=== PATIENT | female | born 1980 | race Caucasian/White ===

== ENCOUNTER → 2016-12-05 | Outpatient (CLI) | payer MEDICAID ==
--- NOTE | 2016-12-05 22:49 | PN ---
DATE OF SERVICE: 12/05/2016 This patient is a 36-year-old lady who has been followed in the sleep center for treatment of obstructive sleep apnea/hypopnea syndrome. Patient continues to use her CPAP equipment every night for the whole night without any significant problems. [place] Sleepiness Scale today is only 3. Her medications are Adderall 40 mg every morning, Celexa 20 mg, multivitamins and Motrin. Previously she was tried on treatment with modafinil but had significant side effects. During physical exam, patient in no distress. BP 131/82, HR 125, RR 16. Height 5 feet 1 inch. Weight 202. BMI 38.1. Temperature 99.1. Oxygen saturation at room air 96%. HEENT: PERRLA. EOMI. Evaluation of oropharynx showed tongue protrudes midline; extremely low position of soft palate. NECK: Supple. No JVD. Thyroid is not palpable. LUNGS: Clear to percussion and to auscultation. Good air exchange. No wheezing or rhonchi. HEART: S1, S2. Tachycardia. ABDOMEN: Obese. Patient's weight has increased by 9 pounds since previous visit. EXTREMITIES: No clubbing or cyanosis. TRANSCRIPTION SPECIALIST: Awake, alert and oriented x3. No focal deficits observed. IMPRESSION: 1. Mild obstructive apnea/hypopnea syndrome, clinically controlled with CPAP at 7 cm of water. No snoring with CPAP. Patient is benefitting from treatment. 2. Significant excessive daytime sleepiness, mostly controlled with Adderall during the day. 3. Patient continues to have tachycardia. 4. History of attention deficit disorder. 5. History of depression. 6. Obesity. 7. Status post appendectomy. 8. Status post lap band surgery. 9. At present patient works a daytime shift. PLAN: 1. Continue treatment with CPAP every night for the whole night. 2. Prescription for all necessary CPAP supplies, including mask, tube, filters. 3. Again discussed with the patient necessity to follow with operations manager station or primary care physician for normalization of her heart rate. 4. Losing weight. 5. No driving if feeling any sleepiness. Thank you very much for allowing me to participate in the management of your patient. Sincerely, Fransico Negrete. , PhD, FAASM. Diplomat of [place] [employer], Sleep Medicine Board by [employer] Ice Bag Assembler of [facility] [place]
== END ==
LOC: SLEEP 14:27
PROVIDERS: ATTEND Internal Medicine
DX: G47.33 Obstructive sleep apnea (adult) (pediatric) (principal); G47.10 Hypersomnia, unspecified; F31.9 Bipolar disorder, unspecified; F41.9 Anxiety disorder, unspecified; E66.9 Obesity, unspecified; Z90.89 Acquired absence of other organs; Z98.890 Other specified postprocedural states

== ENCOUNTER → 2017-06-12 | Outpatient (CLI) | payer MEDICAID ==
--- NOTE | 2017-06-12 21:57 | PN ---
PROGRESS NOTE DATE OF SERVICE: 06/12/2017 A 36-year-old lady has been followed in sleep center for treatment of obstructive sleep apnea-hypopnea syndrome and excessive daytime sleepiness. The patient continued to use her CPAP equipment every night for the whole night. Recently her CPAP equipment heater-humidifier stopped working. She continued to use without humidifier, but has difficulties. Patient taking Adderall 40 mg in the morning for excessive daytime sleepiness and Celexa 20 mg in the morning for depression. I checked the patient's CPAP unit. CPAP pressure 7 cm of water. Ramp is off. Patient is using therapeutic pressure right away. Humidity at the level of 3. I checked usage of the machine is 29/30, more than 4 hours. Average usage is 7.3 hours. Leak is only 5 L/minute, which is perfect. Apnea-hypopnea index only 0.9, which is also perfect. I checked heated humidifier in different regimens of humidity at 3 and at 8 and no heat at all. PHYSICAL EXAMINATION: GENERAL Patient in no distress VITAL SIGNS BP 136/83, HR 96, RR 16, height 5 feet 1 inch, weight 188, BMI 35.5, temperature 98.3, oxygen saturation at room air 100%. HEENT PERRLA, EOMI, evaluation of oropharynx showed tongue protrudes midline, moderately low position of soft palate. Neck Supple, no JVD. Thyroid is not palpable. LUNGS Clear to percussion and to auscultation. Good air exchange. No wheezing or rhonchi. HEART S1, S2 regular. No murmurs, gallops, or rubs. ABDOMEN Slightly obese, soft and nontender. Bowel sounds are present. No organomegaly appreciated. EXTREMITIES No clubbing or cyanosis. SURVEY DATA TECHNICIAN Awake, alert, and oriented X3. Cranial nerves 2 to 7 intact. There is no fasciculation or atrophy. noted. No focal deficits observed. IMPRESSION: 1. Obstructive sleep apnea-hypopnea syndrome on control with CPAP at 7 cm of water. Patient demonstrated 100% compliance with treatment, benefitting from treatment. 2. Excessive daytime sleepiness. Patient is on treatment with Adderall. Previous multiple sleep latency was borderline for excessive sleepiness. 3. History of depression. 4. Mild obesity, BMI 35.5. 5. Status post appendectomy. 6. Status post lap band surgery. PLAN: 1. Prescription for all CPAP supplies. 2. Prescription to fix heated humidifier or replace it or get new CPAP unit. 3. Continue to use equipment every night for the whole night. 4. Losing weight. 5. Sleep hygiene with regular time in bed for at least 8 hours. Continue treatment with Adderall with the same dosage. Thank you very much for allowing me to participate in management of your patient. Sincerely, Fransico Negrete MD, PhD, FAASM Diplomat of [employer] Specialties [employer] Board of Internal Medicine Employment Evaluator/Case Manager of [facility] [place] MMODL / LIZZIEN: [id number] /
== END | disposition home or self-care (01) ==
LOC: SLEEP 16:00
PROVIDERS: ATTEND Internal Medicine
DX: G47.33 Obstructive sleep apnea (adult) (pediatric) (principal); F32.9 Major depressive disorder, single episode, unspecified; E66.9 Obesity, unspecified; Z79.899 Other long term (current) drug therapy; Z99.89 Dependence on other enabling machines and devices; Z68.35 Body mass index [BMI] 35.0-35.9, adult; Z98.84 Bariatric surgery status; Z98.890 Other specified postprocedural states

== ENCOUNTER → 2018-04-03 | Outpatient (CLI) | payer MEDICAID ==
[2018-04-03 09:26] LABS: HCT 37.9 % (34.0-46.0); HGB 12.9 gm/dL (11.4-16.0); MCHC 34.2 g/dL (31.0-37.0); MCV 84.8 fL (80.0-100.0); Mean Platelet Volume 6.8; Platelet Count 274 k/uL (150-450); RBC 4.47 m/uL (3.80-5.40); RDW 13.3 % (11.5-15.5); WBC 7.3 k/uL (3.8-10.6)
[2018-04-03 09:28] LABS: Appearance,Urine Clear (Clear); Bilirubin,Urine Negative (Negative); Blood,Urine Negative (Negative); Color,Urine Yellow; Glucose,Urine (UA) Negative (Negative); Ketones,Urine Negative (Negative); Leukocyte Esterase,Urine Negative (Negative); Nitrite,Urine Negative (Negative); Protein,Urine Trace (Negative); Specific Gravity,Urine 1.018 (1.001-1.035); Urobilinogen,Urine <2.0 mg/dL (<2.0)
[2018-04-03 11:29] LABS: Erythrocyte Sedimentation Rate 16 mm/hr (0-20)
[2018-04-03 16:32] LABS: Albumin 4.3 g/dL (3.80-4.90); Albumin/Globulin Ratio 2.05 (1.20-2.10); Anion Gap 4.7 mmol/L (4.00-12.00); Calcium 9.4 mg/dL (8.7-10.3); Carbon Dioxide 25.3 mmol/L (21.6-31.8); Globulin 2.1 g/dL (2.1-3.7); Potassium 4.6 mmol/L (3.5-5.5); Total Bilirubin 0.4 mg/dL (0.3-1.2); Total Protein 6.4 g/dL (6.2-8.2)
[2018-04-03 16:45] LABS: Rheumatoid Factor 11 IU/mL (0-15)
[2018-04-03 17:29] LABS: DNA Double-Stranded NEGATIVE (NEGATIVE)
[2018-04-03 20:22] LABS: Hemoglobin A1C 5.7 % (4.0-6.0)
== END | disposition home or self-care (01) ==
LOC: LABWHC1 08:48
PROVIDERS: ATTEND Family Medicine
DX: Z00.00 Encounter for general adult medical examination without abnormal findings (principal); R73.9 Hyperglycemia, unspecified
CPT/HCPCS: 36415; 80053; 81003; 83036; 84439; 84443; 85027; 85652; 86038; 86225; 86431

== ENCOUNTER 2018-09-08 06:18 | Day surgery (SDC) | payer MEDICAID ==
[2018-09-03 09:45] VITALS: BMI 34.9
[~2018-09-08 06:18] MED LIST: DEXAMETHASONE SOD PHOSPHATE 10 MG/ML 1 ML VIAL IV ONE; HYDROmorphone 0.5 MG/0.5 ML SYRINGE IVP PRN; LACTATED RINGERS 1,000 ML IV SCH; MIDAZOLAM (PF) 2 MG/2 ML VIAL IV PRN; ONDANSETRON 4 MG/2 ML VIAL IVP ONE; Pre Op ABX Message 1 EACH MISC MISCELLANE ONE; SCOPOLAMINE 1.5MG/72HR PATCH TRANSDERM ONE
[2018-09-08 06:38] VITALS: RESP 16; TEMP 98.3
[2018-09-08] MEDS ORDERED: LIDOCAINE 1% 20 ML VIAL (10MG/ML) FOR IV START INTRADERMA ONE (06:56)
[2018-09-08] MEDS ORDERED: MIDAZOLAM 2 MG/2 ML VIAL ONE (07:21)
[2018-09-08] MEDS ORDERED: fentaNYL (PF) 50 MCG/ML 2 ML AMP ONE (07:21)
[2018-09-08] MEDS ORDERED: PROPOFOL 10 MG/ML 20 ML VIAL IV ONE (07:21)
[2018-09-08] MEDS ORDERED: BUPIVACAINE (PF) 0.5% 30 ML VIAL SQ ONE (07:31)
[2018-09-08] MEDS ORDERED: LIDOCAINE 2% INJ 20 MG/ML SQ ONE (07:31)
[2018-09-08 08:27] VITALS: BP 120/79; PULSE 80
--- NOTE | 2018-09-08 17:51 | OP ---
OPERATIVE REPORT PROCEDURE DATE: 09/08/2018. PRE PROCEDURE DIAGNOSIS: Right trigger thumb. POSTOPERATIVE DIAGNOSIS: Right trigger thumb PROCEDURE PERFORMED: A right trigger thumb release. DETAILS OF PROCEDURE: The patient was taken to the operative suite given intravenous sedation. I then performed a digital block of the thumb using combination Xylocaine and Marcaine both without Epinephrine. The hand was then prepped and draped in the usual manner. The hand was elevated, exsanguinated. The cuff was inflated 250 mmHg. A transverse incision was made in the proximal skin crease of the thumb. Blunt dissection was taken through the subcutaneous tissue to identify the neurovascular bundles. They were kept in view and gently retracted out of harms way while a longitudinal release of the A1 luci was performed. The flexor pollicis longus was examined and slight swelling was noted but the tendon was intact. The tendon was gently retracted from the wound to ensure no adhesion. The wound was then thoroughly irrigated, tourniquet released. Hemostasis was acquired and the skin was closed with 5-0 nylon suture. Soft bulky dressing applied. The patient was taken to the recovery room in satisfactory condition. MMODL / IJN: [id number] /
== END 2018-09-08 08:45 | disposition home or self-care (01) ==
LOC: OR 06:18
PROVIDERS: ATTEND Orthopaedic Surgery Hand Surgery
DX: M65.311 Trigger thumb, right thumb (principal); Z88.0 Allergy status to penicillin; Z88.7 Allergy status to serum and vaccine; G47.33 Obstructive sleep apnea (adult) (pediatric); Z99.89 Dependence on other enabling machines and devices; E11.9 Type 2 diabetes mellitus without complications; F32.9 Major depressive disorder, single episode, unspecified; G47.419 Narcolepsy without cataplexy; F39 Unspecified mood [affective] disorder; F17.200 Nicotine dependence, unspecified, uncomplicated; Z79.1 Long term (current) use of non-steroidal anti-inflammatories (NSAID); Z79.899 Other long term (current) drug therapy
CPT/HCPCS: 81025; 26055; J2001; J2250; J1100; J2405; J3010; J2704

== ENCOUNTER → 2019-05-13 | Outpatient (CLI) | payer MEDICAID ==
--- NOTE | 2019-05-13 17:08 | PN ---
PROGRESS NOTE DATE OF SERVICE: 05/13/2019 This patient is a 38-year-old lady who has been followed in Sleep Center for treatment of obstructive sleep apnea-hypopnea syndrome and excessive daytime sleepiness. The patient continues to get therapy with her CPAP every night for the whole night. Two days ago she received a new CPAP unit. She is using it without significant problems related to mask fitting, pressure or humidification. [place] Sleepiness Scale today is 5. Patient continues to take Adderall 40 mg in the morning for excessive daytime sleepiness, which had been previously confirmed by MSLT which showed borderline mean sleep latency. Celexa was stopped in January of 2019. PHYSICAL EXAMINATION: GENERAL: A pleasant patient in no distress. VITAL SIGNS: BP 133/90, HR about 115, RR 18, height 5 feet 3/4 inches. Weight 164.4, temperature 98.3, and oxygen saturation at room air 98%. HEENT: PERRLA, EOMI. Evaluation of oropharynx showed tongue protrudes midline. Moderately low position of soft palate. NECK: Supple. No JVD. Thyroid is not palpable. LUNGS: Clear to percussion and to auscultation. Good air exchange. No wheezing or rhonchi. HEART: S1, S2 regular. No murmurs, gallops or rubs. ABDOMEN: Soft. No tenderness. EXTREMITIES: No clubbing or cyanosis. INGREDIENT SPECIALIST: Awake, alert, and oriented X3. Cranial nerves 2 to 7 intact. There is no fasciculation or atrophy. noted. No focal deficits observed. IMPRESSION: 1. Obstructive sleep apnea-hypopnea syndrome. Patient successfully continues to use her CPAP equipment and recently received a new CPAP unit, benefitting from treatment. 2. Significant excessive daytime sleepiness, confirmed by multiple sleep latency test, under control with Adderall 40 mg once a day. 3. Tachycardia, which has been documented before. Patient was started on treatment with Adderall. 4. History of attention deficit disorder. 5. History of depression. 6. Mild obesity. Patient lost 24 pounds since previous visit. 7. Status post appendectomy. 8. Status post lap band surgery. PLAN: 1. Patient will continue to use her CPAP equipment every night for the whole night. 2. Because she received a new CPAP unit, I will see her in 1 to 2 months for evaluation of her clinical compliance with treatment and to check her CPAP unit for apnea-hypopnea index. This is also necessary because of the patient's significant weight loss. 3. No driving if feeling any sleepiness. 4. Sleep hygiene with regular time in bed for 7-1/2 to 8 hours. 5. Will continue treatment with Adderall 40 mg in the morning. Thank you very much for allowing me to participate in the management of your patient. Sincerely, Fransico Negrete MD, PhD, FAASM Diplomat of [place] [employer] Specialties [employer] Board of Internal Medicine Commissary Helper of [facility] [place] MMODL / LIZZIEN: [id number] /
== END | disposition home or self-care (01) ==
LOC: SLEEP 16:12
PROVIDERS: ATTEND Internal Medicine
DX: G47.33 Obstructive sleep apnea (adult) (pediatric) (principal); E66.9 Obesity, unspecified; R00.0 Tachycardia, unspecified; Z98.84 Bariatric surgery status; Z90.49 Acquired absence of other specified parts of digestive tract; Z86.59 Personal history of other mental and behavioral disorders; Z99.89 Dependence on other enabling machines and devices; Z79.899 Other long term (current) drug therapy

== ENCOUNTER → 2019-11-11 | Outpatient (CLI) | payer MEDICAID ==
--- NOTE | 2019-11-12 05:58 | SFUN ---
SLEEP CENTER FOLLOW UP NOTE DATE OF SERVICE: 11/11/2019 This 38-year-old lady has been followed in sleep center for treatment of obstructive sleep apnea-hypopnea syndrome and excessive daytime sleepiness. The patient is on treatment with Adderall 40 mg in the morning for sleepiness and she continues to use her CPAP equipment every night for the whole night. [place] Sleepiness Scale today is 4. I checked her CPAP unit. CPAP pressure is 7 cm of water. Usage is 30 out of 30 nights for more than 4 hours with average usage 7.4 hours per night. Leak is only 4 L/minutes. Apnea-hypopnea index only 0.4. MEDICATIONS: Adderall, Celexa, vitamin D, calcium supplement, multivitamins. PHYSICAL EXAMINATION: GENERAL: Patient in no distress. VITAL SIGNS: BP 132/86, HR around 96, RR 16, height 5 feet and 3/4 inch, weight 159, body mass index 30.5, temperature 98.0, oxygen saturation at room air 97%. HEENT: PERRLA, EOMI. Oropharynx moderately low position of soft palate. NECK: Supple, no JVD. Thyroid is not palpable. LUNGS: Clear to percussion and to auscultation. Good air exchange. No wheezing or rhonchi. HEART: S1, S2 regular. No murmurs, gallops, or rubs. ABDOMEN: Soft and nontender. Bowel sounds are present. No organomegaly appreciated. EXTREMITIES: No clubbing or cyanosis. STAIN APPLICATOR: Awake, alert, and oriented X3. Cranial nerves 2 to 7 intact. There is no fasciculation or atrophy. noted. No focal deficits observed. IMPRESSION: 1. Obstructive sleep apnea-hypopnea syndrome. Patient demonstrated 100% compliance with treatment, benefitting from treatment. 2. History of attention deficit disorder. 3. Significant excessive daytime sleepiness confirmed by MSLT mostly on control with Adderall. 4. Tachycardia, which was documented before the patient was started on treatment with Adderall. 5. History of depression. 6. Mild obesity. 7. Status post appendectomy. 8. Status post lap band surgery. PLAN: 1. Patient will continue to use CPAP equipment every night for the whole night. 2. Will continue to take Adderall 40 mg in the morning. 3. Take precautions with driving, no driving if feeling sleepiness. 4. Daytime naps permitted. 5. Follow-up visit in 4 months or earlier if patient has any problems. Thank you very much for allowing me to participate in management of your patient. Sincerely, Fransico Negrete MD, PhD, FAASM Diplomat of [place] [employer] Specialties [employer] Board of Internal Medicine Mortgage Banker of [facility] [place] MMODL / MYLENE: [id number] /
== END | disposition home or self-care (01) ==
LOC: SLEEP 15:57
PROVIDERS: ATTEND Internal Medicine
DX: G47.33 Obstructive sleep apnea (adult) (pediatric) (principal); R00.0 Tachycardia, unspecified; E66.9 Obesity, unspecified; Z98.84 Bariatric surgery status; Z99.89 Dependence on other enabling machines and devices; Z86.59 Personal history of other mental and behavioral disorders

== ENCOUNTER → 2020-03-09 | Outpatient (CLI) | payer MEDICAID ==
--- NOTE | 2020-03-09 21:02 | SFUN ---
SLEEP CENTER FOLLOW UP NOTE DATE OF SERVICE: 03/09/2020 This is a 39-year-old lady who has been followed in Sleep Center for treatment of obstructive sleep apnea-hypopnea syndrome and also additionally significant excessive daytime sleepiness confirmed by multiple sleep latency test; possible narcolepsy. The patient continues to use her CPAP equipment every night for the whole night. No problem with the mask or treatment. I checked her CPAP unit. Pressure is 7 cm of water. Usage is 30/30 nights for more than 4 hours. Leak is 11 L/minute, which is acceptable. Apnea-hypopnea index is only 0.5, which is perfect. The patient is on Adderall 20 mg two tablets in the morning for sleepiness, and with this regimen she feels well. No side effects. [place] Sleepiness Scale today is only 2. Other medications are Celexa, Biotene, Xyzal. PHYSICAL EXAMINATION: GENERAL: A pleasant patient in no distress. VITAL SIGNS: BP 128/87, HR 92, RR 15, height 5 feet 1 inch, weight 175, BMI 33.0, oxygen saturation at room air 100%. Temperature 98.2. HEENT: PERRLA, EOMI. Evaluation of oropharynx showed tongue protrudes midline. Moderately low position of soft palate. NECK: Supple. No JVD. Thyroid is not palpable. LUNGS: Clear to percussion and to auscultation. Good air exchange. No wheezing or rhonchi. HEART: S1, S2 regular. No murmurs, gallops or rubs. ABDOMEN: Soft, nontender. No organomegaly. Bowel sounds are heard in all four quadrants. EXTREMITIES: No clubbing or cyanosis. HYDRO SPRAYER OPERATOR: Awake, alert, and oriented X3. Cranial nerves 2 to 7 intact. There is no fasciculation or atrophy. noted. No focal deficits observed. IMPRESSION: 1. Obstructive sleep apnea-hypopnea syndrome. Patient demonstrated great compliance with treatment, benefitting from treatment. 2. History of attention deficit hyperactivity disorder. 3. Significant excessive daytime sleepiness confirmed by MSLT. 4. Tachycardia. 5. History of depression. 6. Mild obesity. 7. Status post appendectomy. 8. Status post lap band surgery. PLAN: 1. Patient will continue to use PAP equipment every night for the whole night. 2. Sleep hygiene with regular time in bed for at least 7-1/2 to 8 hours. 3. Precautions related to driving. No driving if feeling sleepiness. 4. I will maintain all necessary prescription for PAP supplies including mask, tube, filters. 5. Watching weight. 6. No driving if feeling sleepiness. 7. Follow-up visit in 6 months or earlier if patient has any problems. 8. The patient will continue to take Adderall 20 mg twice a day in the morning. Thank you very much for allowing me to participate in the management of your patient. Sincerely, Fransico Negrete MD, PhD, FAASM Diplomat of [place] [employer] Medical Specialties [employer] Board of Internal Medicine Tug Captain of [facility] [place] MMODL / IJN: [id number] /
== END | disposition home or self-care (01) ==
LOC: SLEEP 16:08
PROVIDERS: ATTEND Internal Medicine
DX: G47.33 Obstructive sleep apnea (adult) (pediatric) (principal); R00.0 Tachycardia, unspecified; E66.9 Obesity, unspecified; Z98.84 Bariatric surgery status; Z86.59 Personal history of other mental and behavioral disorders; Z90.89 Acquired absence of other organs

== ENCOUNTER → 2020-07-28 | Outpatient (CLI) | payer MEDICAID ==
[2020-07-28 11:04] LABS: Basophils # (A) 0.02 X 10*3/uL (0.00-0.10); Basophils % (A) 0.3 %; Eosinophils # (A) 0.03 X 10*3/uL (0.04-0.35); Eosinophils % (A) 0.4 %; HCT 41.4 % (37.2-46.3); HGB 13.8 g/dL (12.0-15.0); Lymphocytes # (A) 1.52 X 10*3/uL (0.90-5.00); Lymphocytes % (A) 19.7 %; MCH 28.8 pg (27.0-32.0); MCHC 33.3 g/dL (32.0-37.0); MCV 86.4 fL (80.0-97.0); Mean Platelet Volume 9.9 fL (9.5-12.2); Monocytes # (A) 0.59 X 10*3/uL (0.20-1.00); Monocytes % (A) 7.6 %; Neutrophils # (A) 5.56 X 10*3/uL (1.80-7.70); Neutrophils % (A) 71.9 %; Platelet Count 297 X 10*3/uL (140-440); RBC 4.79 X 10*6/uL (4.10-5.20); RDW 12.5 % (11.5-14.5); WBC 7.73 X 10*3/uL (4.50-10.00)
[2020-07-28 12:00] LABS: African American GFR (CKD) 107.6 (60.0-200.0); Albumin 4.6 g/dL (3.80-4.90); Albumin/Globulin Ratio 2.09 (1.60-3.17); Anion Gap 6.9 mmol/L (4.00-12.00); Carbon Dioxide 26.1 mmol/L (21.6-31.8); Chol/HDL Ratio 3.05; Globulin 2.2 g/dL (1.6-3.3); LDL Cholesterol,Calculated 107.6 mg/dL (0.0-131.0); Non-African American GFR(CKD) 92.9 (60.0-200.0); Potassium 4.7 mmol/L (3.5-5.5); Total Bilirubin 0.5 mg/dL (0.2-1.2); Total Protein 6.8 g/dL (6.2-8.2); VLDL Calculation 15.4 mg/dL (5.00-40.00)
[2020-07-28 12:08] LABS: T4, Free (Free Thyroxine) 1.3 ng/dL (0.80-1.80)
[2020-07-28 15:39] LABS: Hemoglobin A1C 5.5 % (4.0-6.0)
== END ==
LOC: LABWHC1 07:21
PROVIDERS: ATTEND Family Medicine
DX: Z00.00 Encounter for general adult medical examination without abnormal findings (principal); E11.9 Type 2 diabetes mellitus without complications
CPT/HCPCS: 36415; 80053; 80061; 82306; 83036; 84439; 84443; 85025

== ENCOUNTER → 2020-08-30 | Outpatient (CLI) | payer MEDICAID | END | disposition home or self-care (01) | LOC: LABWHC1 12:10 | PROVIDERS: ATTEND Otolaryngology | DX: J30.89 Other allergic rhinitis (principal) | CPT/HCPCS: 36415 ==

== ENCOUNTER → 2020-10-19 | Outpatient (CLI) | payer MEDICAID ==
--- NOTE | 2020-10-20 09:11 | SFUN ---
SLEEP CENTER FOLLOW UP NOTE DATE OF SERVICE: 10/19/2020 39-year-old lady has been followed in Sleep Center for treatment of obstructive sleep apnea and significant excessive daytime sleepiness, possibly narcolepsy. The patient continues to use her CPAP equipment every night for the whole night, getting her supplies in time and no snoring with the machine and she is on Adderall 40 mg in the morning. [place] Sleepiness Scale today is 3, which is normal. I checked her CPAP unit. Pressure 7 cm of water. Usage is 30/30 nights for more than 4 hours. Average use 7.7 hours per night. Leak is 1 L/minute. Apnea-hypopnea index is only 0.5, which is totally normal. Recently the patient had evaluation by an and was started on treatment for allergy and feels better also. Present medications: Celexa 10 mg once a day. Adderall 40 mg once a day in the morning. Motrin 800 mg t.i.d. p.r.n. basis. Montelukast 10 mg q.h.s., fexofenadine 180 mg once a day. Fluticasone 50 mcg every other. PHYSICAL EXAMINATION: GENERAL: Patient in no distress. BP 137/91, HR 100, RR 12, height 5 feet 1 inch, weight 172.2 pounds, temperature 97.5, oxygen saturation at room air 98%. Body mass index 32.8. HEENT: PERRLA, EOMI, evaluation of oropharynx showed moderately low position of soft palate. NECK: Supple, no JVD. Thyroid is not palpable. LUNGS: Clear to percussion and to auscultation. Good air exchange. No wheezing or rhonchi. HEART: S1, S2 regular. No murmurs, gallops, or rubs. ABDOMEN: Soft and nontender. Bowel sounds are present. No organomegaly appreciated. EXTREMITIES: No clubbing or cyanosis. IMMIGRATION PARALEGAL: Awake, alert, and oriented X3. Cranial nerves 2 to 7 intact. There is no fasciculation or atrophy. noted. No focal deficits observed. IMPRESSION: 1. Obstructive sleep apnea-hypopnea syndrome. Patient demonstrated great compliance with treatment benefitting from treatment. 2. Significant excessive daytime sleepiness, confirmed by multiple sleep latency test, possible narcolepsy. 3. History of attention deficit hyperactivity disorder. 4. Tachycardia. 5. History of depression. 6. Mild obesity. 7. Status post appendectomy. 8. Status post lap band surgery. PLAN: 1. Patient will continue to take Adderall 40 mg in the morning. 2. Patient will continue to use PAP equipment every night for the whole night. 3. Sleep hygiene with regular time in bed for at least 7-1/2 to 8 hours. 4. Precautions related to driving. No driving if feeling sleepiness. 5. I will maintain all necessary prescription for PAP supplies including mask, tube, filters. 6. Watching weight. 7. Follow-up visit in 6 months or earlier if patient has any problems. Thank you very much for allowing me to participate in management of patient. Sincerely, Fransico Negrete MD, PhD, FAASM Diplomat of [place] Board of Medical Specialties [place] Board of Internal Medicine Window Shade Installer of [facility] [place] MMJOSEFINA / LIZZIEN: [id number] /
== END ==
LOC: SLEEP 15:42
PROVIDERS: ATTEND Internal Medicine
DX: G47.33 Obstructive sleep apnea (adult) (pediatric) (principal); F90.9 Attention-deficit hyperactivity disorder, unspecified type; R00.0 Tachycardia, unspecified; F32.9 Major depressive disorder, single episode, unspecified; E66.9 Obesity, unspecified; F17.200 Nicotine dependence, unspecified, uncomplicated; Z98.84 Bariatric surgery status; Z90.49 Acquired absence of other specified parts of digestive tract; Z88.1 Allergy status to other antibiotic agents
CPT/HCPCS: 99211

== ENCOUNTER → 2021-04-26 | Outpatient (CLI) | payer MEDICAID ==
--- NOTE | 2021-04-27 06:20 | SFUN ---
SLEEP CENTER FOLLOW UP NOTE DATE OF SERVICE: 04/26/2021 40-year-old lady has been followed in Sleep Center for treatment of obstructive sleep apnea-hypopnea syndrome. The patient continues to use her CPAP equipment every night, getting all necessary CPAP supplies for her machine without problems. [place] Sleepiness Scale today is 6 which is in normal range. I checked her CPAP unit. CPAP pressure is 7 cm of water, usage 30/30 nights for more than 4 hours, average 7.6 hours per night. Leak is only 2 L/minute. Apnea-hypopnea index is only 0.6 which is absolutely perfect. CURRENT MEDICATIONS: Celexa 20 mg once a day, Adderall 20 mg 2 tablets a day, fexofenadine 180 mg once a day, montelukast 10 mg once a day, fluticasone 50 mcg 2 spray each nostril. PHYSICAL EXAMINATION: GENERAL: Patient in no distress. BP 140/81, HR around 90, RR 15, height 5 foot 0.5 inch, weight 185 pounds, body mass index 34.9, temperature 98.3, oxygen saturation at room air 100%. Evaluation of oropharynx showed moderately low position of soft palate. NECK: Supple, no JVD. Thyroid is not palpable. LUNGS: Clear to percussion and to auscultation. Good air exchange. No wheezing or rhonchi. HEART: S1, S2 regular. No murmurs, gallops, or rubs. ABDOMEN: Soft and nontender. Bowel sounds are present. No organomegaly appreciated. EXTREMITIES: No clubbing or cyanosis. GLASS PRODUCTION MACHINE OPERATOR: Awake, alert, and oriented X3. Cranial nerves 2 to 7 intact. There is no fasciculation or atrophy. noted. No focal deficits observed. IMPRESSION: 1. Obstructive sleep apnea-hypopnea syndrome. Patient demonstrated great compliance with treatment. Normal respiration on CPAP therapy. 2. Possible narcolepsy, alertness on control with Adderall. 3. History of attention-deficit/hyperactivity disorder. 4. History of depression. 5. . 6. Status post appendectomy. 7. Status post lap band surgery. PLAN: 1. The patient will continue to take Adderall 40 mg in the morning. With this regimen, she feels well. 2. Patient will continue to use PAP equipment every night for the whole night. 3. Sleep hygiene with regular time in bed for at least 7-1/2 to 8 hours. 4. Precautions related to driving. No driving if feeling sleepiness. 5. I will maintain all necessary prescription for PAP supplies including mask, tube, filters. 6. Watching weight. 7. Follow-up visit in 6 months or earlier if patient has any problems. Thank you very much for allowing me to participate in the management of your patient. Sincerely, Fransico Negrete MD, PhD, FAASM Diplomat of [place] [employer] Specialties Sleep Medicine Board of [place] Board of Internal Medicine Biofuels Production Associate of [facility] [place] MMODL / IJN: [id number] /
== END ==
LOC: SLEEP 15:34
PROVIDERS: ATTEND Internal Medicine
DX: G47.33 Obstructive sleep apnea (adult) (pediatric) (principal); F90.9 Attention-deficit hyperactivity disorder, unspecified type; F32.A Depression, unspecified; F17.200 Nicotine dependence, unspecified, uncomplicated; Z90.49 Acquired absence of other specified parts of digestive tract; Z98.84 Bariatric surgery status; Z99.89 Dependence on other enabling machines and devices; Z88.0 Allergy status to penicillin

== ENCOUNTER → 2021-10-25 | Outpatient (CLI) | payer MEDICAID ==
--- NOTE | 2021-10-25 17:04 | P.PN ---
Subjective DATE: 10/25/2021 FOLLOW UP VISIT. Patient with obstructive sleep apnea hypopnea syndrome return to sleep center for follow-up visit. Patient is using PAP equipment every night for the whole night, getting PAP supplies in time. The patient does not have significant problems with the mask, PAP unit and humidification. I checked information from PAP unit. PAP unit pressure 7 cm H2O. Usage is 100 % for more then 4 hours, average 7.6 hours per night. Leak is 1 l/m, which is in acceptable range. Apnea Hypopnea Index is 0.4, which is normal. Patient is on treatment with Adderall for narcolepsy type II [place] sleepiness scale is 4. MEDICATIONS:1. Adderall 40 mg once a day in the morning 2. Celexa 20 mg once a day 3. Fexofenadine 180 mg once a day 4. Montelucast 10 mg once a day 5. Fluticasone 6. Motrin During physical exam: GENERAL: A pleasant patient without any distress. VITAL SIGNS: BP 155/80, HR 98, 16 , weight 195, temperature 98.4, oxygen saturation at room air 98 . HEENT: PERRLA, EOMI.low position of soft palate, Mallapati 3 . NECK: Supple. No JVD. LUNGS: Clear to percussion and to auscultation. Good air exchange. No wheezing or rhonchi. HEART: S1, S2 regular. ABDOMEN: Soft and nontender. Slightly obese EXTREMITIES: No clubbing or cyanosis. SECURITY MONITOR: Awake, alert, and oriented x3. No focal deficit. Impressions: 1. Obstructive sleep apnea-hypopnea syndrome. Patient demonstrated great compliance with treatment, benefiting from treatment. 2. Possible narcolepsy2 on control with Adderall. 3. History of ADHD. 4. History of depression. 5. Status post appendectomy. 6. Status post lap band surgery. Plan: 1. Continue using PAP equipment every night for the whole night. 2. To change air filter at least 1-2 times per month. 3. PAP unit should stay lower then position of the head. 4. Advised patient to remove all remaining water from humidifier canister daily and make it dry after each usage. Refill canister with fresh distilled water before each usage. 5. Sleep hygiene with regular time in bed for at least 8 hours. 6. Precautions related to driving. No driving if feel any sleepiness. 7. I will maintain prescription for PAP supplies including mask, tube, filters. 8. Follow up visit in 6 months or earlier if patient has any problems. 9. Watching weight. Thank you very much for allowing me to participate in the management of your patient. rFansico Negrete MD, PhD, FAASM. Diplomat of [place] [employer] of Sleep Medicine, Sleep Medicine Board by [place] [employer] Medicine Concrete Bucket Hooker of [facility] [place]
== END ==
LOC: SLEEP 15:37
PROVIDERS: ATTEND Internal Medicine
DX: G47.33 Obstructive sleep apnea (adult) (pediatric) (principal); F32.A Depression, unspecified; F90.9 Attention-deficit hyperactivity disorder, unspecified type; Z90.49 Acquired absence of other specified parts of digestive tract; Z98.84 Bariatric surgery status; Z99.89 Dependence on other enabling machines and devices; Z79.899 Other long term (current) drug therapy; Z88.0 Allergy status to penicillin; F17.200 Nicotine dependence, unspecified, uncomplicated

== ENCOUNTER → 2022-05-02 | Outpatient (CLI) | payer MEDICAID ==
--- NOTE | 2022-05-02 16:43 | P.PN ---
Subjective DATE: 05/02/2022 FOLLOW UP VISIT. Patient with obstructive sleep apnea hypopnea syndrome and narcolepsy type II return to sleep center for follow-up visit. Information from previous visit have been reviewed. Patient is using PAP equipment every night for the whole night, getting PAP supplies in time. The patient does not have significant problems with the mask, PAP unit and humidification. [place] sleepiness scale is 4, which is normal. I checked information from PAP unit. PAP unit pressure 7 cm H2O. Usage is 100 % for more then 4 hours, average 7.3 hours per night. Leak is 1 l/m, which is in acceptable range. Apnea Hypopnea Index is 0.4, which is normal. MEDICATIONS:1. Celexa 20 mg once a day 2. Adderall 40 mg once a day 3. Fexofenadine 180 mg once a day 4. Fluticasone spray 5. Montelucast During physical exam: GENERAL: A pleasant patient without any distress. VITAL SIGNS: BP 153/94, HR 98, RR 16 , weight 193, body mass index 36.4, temperature 98.1, oxygen saturation at room air 99 % . HEENT: PERRLA, EOMI.low position of soft palate, Mallapati 3 . NECK: Supple. No JVD. LUNGS: Clear to percussion and to auscultation. Good air exchange. No wheezing or rhonchi. HEART: S1, S2 regular. ABDOMEN: Soft and nontender. Slightly obese EXTREMITIES: No clubbing or cyanosis. TECHNICAL MARKETING ENGINEER: Awake, alert, and oriented x3. No focal deficit. Impressions: 1. Obstructive sleep apnea-hypopnea syndrome. Patient demonstrated great compliance with treatment, benefiting from treatment. 2. Narcolepsy2 on control with Adderall. 3. Mild obesity body mass index 36.4. 4. History of ADHD. 5. History of depression. 6. Status post lap band surgery. 7. Status post appendectomy. Plan: 1. Continue using PAP equipment every night for the whole night. 2. To change air filter at least 1-2 times per month. 3. PAP unit should stay lower then position of the head. 4. Advised patient to remove all remaining water from humidifier canister daily and make it dry after each usage. Refill canister with fresh distilled water before each usage. 5. Sleep hygiene with regular time in bed for at least 8 hours. 6. Precautions related to driving. No driving if feel any sleepiness. 7. I will maintain prescription for PAP supplies including mask, tube, filters. 8. Follow up visit in 6 months or earlier if patient has any problems. 9. Watching and losing weight. Thank you very much for allowing me to participate in the management of your patient. Fransico Negrete MD, PhD, FAASM. Diplomat of [employer] Board [employer] Sleep Medicine, Sleep Medicine Board by [employer] Board of Internal Medicine C D Stripper of [facility] [place]
== END ==
LOC: SLEEP 15:50
PROVIDERS: ATTEND Internal Medicine
DX: G47.33 Obstructive sleep apnea (adult) (pediatric) (principal); Z99.89 Dependence on other enabling machines and devices; E66.8 Other obesity; Z68.36 Body mass index [BMI] 36.0-36.9, adult; G47.419 Narcolepsy without cataplexy; Z86.59 Personal history of other mental and behavioral disorders; Z98.84 Bariatric surgery status; Z90.89 Acquired absence of other organs; Z88.0 Allergy status to penicillin; F17.200 Nicotine dependence, unspecified, uncomplicated
CPT/HCPCS: 99212

== ENCOUNTER → 2022-05-15 | Outpatient (CLI) | payer MEDICAID ==
--- NOTE | 2022-05-16 08:31 | MM ---
Reason for Exam: Screening (asymptomatic). Baseline mammogram. Patient History: Menarche at age 12. First Full-Term at age 20. Premenopausal. Last menstrual period: 04/26/2022 Risk Values: Lizzeth 5 year model risk: 0.5%. NCI Lifetime model risk: 9.0%. Prior Study Comparison: Patient's first Mammogram. Tissue Density: The breast tissue is almost entirely fat. Findings: Analyzed By CAD. There is no suspicious group of microcalcifications or new suspicious mass in either breast. Overall Assessment: Negative, BI-RAD 1 Management: Screening Mammogram of both breasts in 1 year. A clinical breast exam by your physician is recommended on an annual basis and results should be correlated with mammographic findings. [facility] will attempt to contact patient to return for supplemental views and ultrasound if indicated. Electronically signed and approved by: Norberto Atkinson DO
== END | disposition home or self-care (01) ==
LOC: RADMAMWWP 07:35
PROVIDERS: ATTEND Obstetrics & Gynecology
DX: Z12.31 Encounter for screening mammogram for malignant neoplasm of breast (principal)
CPT/HCPCS: 77063; 77067

== ENCOUNTER → 2022-08-22 | Outpatient (CLI) | payer MEDICAID ==
--- NOTE | 2022-08-22 11:05 | P.PN ---
Subjective DATE: 08/22/2022 FOLLOW UP VISIT. Patient with narcolepsy and obstructive sleep apnea hypopnea syndrome return to sleep center for follow-up visit. Information from previous visit have been reviewed. Patient is using PAP equipment every night for the whole night, getting PAP supplies in time. The patient does not have significant problems with the mask, PAP unit and humidification. [place] sleepiness scale is 4, which is normal. Presently patient is on Adderall 40 mg in the morning. I checked information from PAP unit. PAP unit pressure 7 cm H2O. Usage is 100 % for more then 4 hours, average 7.7 hours per night. Leak is on l/m, which is in acceptable range. Apnea Hypopnea Index is perfect 0.5. MEDICATIONS:1. Adderall 40 mg in the morning 2. Celexa 20 mg once a day 3. Fluticasone spray 4. Montelucast 5. Fexofenadine 180 mg once a day During physical exam: GENERAL: A pleasant patient without any distress. VITAL SIGNS: BP 138/92, HR 89, RR 12, weight 188.8, temperature 98.2, oxygen saturation at room air 99 % . HEENT: PERRLA, EOMI.low position of soft palate, Mallapati 3. NECK: Supple. No JVD. LUNGS: Clear to percussion and to auscultation. Good air exchange. No wheezing or rhonchi. HEART: S1, S2 regular. ABDOMEN: Soft and nontender. Slightly obese EXTREMITIES: No clubbing or cyanosis. PLATE SLITTER AND INSPECTOR: Awake, alert, and oriented x3. No focal deficit. Impressions: 1. Obstructive sleep apnea-hypopnea syndrome. Patient demonstrated great compliance with treatment, benefiting from treatment. 2. Mild obesity, body mass index 35.5, patient lost 5 pounds since previous visit. 3. Narcolepsy2. 4. History of ADHD. 5. History of depression. 6. Status post LAP-BAND surgery. 7. Status post appendectomy. 8. Slightly increasing blood pressure in the office, although patient believes she was nervous. Plan: 1. Continue using PAP equipment every night for the whole night. 2. To change air filter at least 1-2 times per month. 3. PAP unit should stay lower then position of the head. 4. To change her regimen of taking Adderall to 20 mg twice a day. 5. Sleep hygiene with regular time in bed for at least 8 hours. 6. Precautions related to driving. No driving if feel any sleepiness. 7. I will maintain prescription for PAP supplies including mask, tube, filters. 8. Follow up visit in 4 months or earlier if patient has any problems. 9. Watching and losing weight. 10. Monitoring blood pressure. 11. Low sodium diet. Thank you very much for allowing me to participate in the management of your patient. Fransico Negrete MD, PhD, FAASM. Diplomat of [place] Board of Sleep Medicine, Sleep Medicine Board by [employer] Board of Internal Medicine [employer] Art Teacher of [facility] [place]
== END ==
LOC: SLEEP 10:14
PROVIDERS: ATTEND Internal Medicine
DX: G47.33 Obstructive sleep apnea (adult) (pediatric) (principal); E66.9 Obesity, unspecified; F32.A Depression, unspecified; F90.9 Attention-deficit hyperactivity disorder, unspecified type; Z68.35 Body mass index [BMI] 35.0-35.9, adult; Z79.899 Other long term (current) drug therapy; Z90.49 Acquired absence of other specified parts of digestive tract; Z46.51 Encounter for fitting and adjustment of gastric lap band; Z98.890 Other specified postprocedural states; Z99.89 Dependence on other enabling machines and devices; Z88.0 Allergy status to penicillin; F17.200 Nicotine dependence, unspecified, uncomplicated
CPT/HCPCS: 99212

== ENCOUNTER → 2023-01-01 | Outpatient (CLI) | payer MEDICAID ==
--- NOTE | 2023-01-01 13:49 | P.PN ---
Subjective DATE: 01/01/2023 FOLLOW UP VISIT. Patient with narcolepsy and obstructive sleep apnea hypopnea syndrome return to sleep center for follow-up visit. Information from previous visit have been reviewed. Patient is using PAP equipment every night for the whole night, getting PAP supplies in time. The patient does not have significant problems with the mask, PAP unit and humidification. [place] sleepiness scale is 5, which is in normal range. I checked information from PAP unit. PAP unit pressure 7 cm H2O. Usage is 100 % for more then 4 hours, average 7.5 hours per night. Leak is 0 l/m, which is in perfect range. Apnea Hypopnea Index is 0.6, which is normal. MEDICATIONS:1. Adderall 40 mg a day 2. Celexa 20 mg once a day 3. Fluticasone 4. Montelucast 10 mg once a day 5. Fexofenadine 180 mg once a day During physical exam: GENERAL: A pleasant patient without any distress. VITAL SIGNS: BP 142/93, HR 106, RR 18, weight 183.2, temperature 98.1, oxygen saturation at room air 100 % . HEENT: PERRLA, EOMI.low position of soft palate, Mallapati 3 . NECK: Supple. No JVD. LUNGS: Clear to percussion and to auscultation. Good air exchange. No wheezing or rhonchi. HEART: S1, S2 regular. ABDOMEN: Soft and nontender.[] EXTREMITIES: No clubbing or cyanosis. CASSEROLE PREPARER: Awake, alert, and oriented x3. No focal deficit. Impressions: 1. Obstructive sleep apnea-hypopnea syndrome. Patient demonstrated great compliance with treatment, benefiting from treatment. 2. Narcolepsy type II. 3. Mild obesity, patient lost 5 pounds since previous visit. 4. History of ADHD . 5. Status post lap band surgery. 6. History of depression . Plan: 1. Continue using PAP equipment every night for the whole night. 2. Patient will continue Adderall. Total dose 40 mg /day. 3. PAP unit should stay lower then position of the head. 4. Advised patient to remove all remaining water from humidifier canister daily and make it dry after each usage. Refill canister with fresh distilled water before each usage. 5. Sleep hygiene with regular time in bed for at least 8 hours. 6. Precautions related to driving. No driving if feel any sleepiness. 7. I will maintain prescription for PAP supplies including mask, tube, filters. 8. Follow up visit in 6 months or earlier if patient has any problems. 9. Watching and continue losing weight. Thank you very much for allowing me to participate in the management of your patient. Fransico Negrete MD, PhD, FAASM. Diplomat of [place] Board of Sleep Medicine, Sleep Medicine Board by [employer] Board of Internal Medicine Sleeve Tailor of [facility] [place]
== END ==
LOC: 3 N SLEEP 13:19
PROVIDERS: ATTEND Internal Medicine
DX: G47.33 Obstructive sleep apnea (adult) (pediatric) (principal); E66.9 Obesity, unspecified; F32.A Depression, unspecified; F90.9 Attention-deficit hyperactivity disorder, unspecified type; G47.419 Narcolepsy without cataplexy; Z46.51 Encounter for fitting and adjustment of gastric lap band; Z79.899 Other long term (current) drug therapy; Z99.89 Dependence on other enabling machines and devices; Z98.890 Other specified postprocedural states; Z88.0 Allergy status to penicillin; F17.200 Nicotine dependence, unspecified, uncomplicated
CPT/HCPCS: 99212

== ENCOUNTER → 2023-07-24 | Outpatient (CLI) | payer MEDICAID ==
[2023-07-24 13:59] VITALS: BP 153/92; PULSE 97; RESP 18; TEMP 97.9
--- NOTE | 2023-07-24 14:35 | P.PN ---
Subjective DATE: 07/24/2023 FOLLOW UP VISIT. Patient with obstructive sleep apnea hypopnea syndrome and narcolepsy return to sleep center for follow-up visit. Information from previous visit have been reviewed. Presently patient is on treatment with Adderall 20 mg twice a day and with this medication cure alertness is on control. Patient is using PAP equipment every night for the whole night, getting PAP supplies in time. The patient does not have significant problems with the mask, PAP unit and humidification. [place] sleepiness scale is 3. I checked information from PAP unit. PAP unit pressure 7 cm H2O. Usage is 100% for more then 4 hours, average 7.9 hours per night. Leak is 2 l/m, which is in acceptable range. Apnea Hypopnea Index is 0.4, which is normal. MEDICATIONS:1. Celexa 20 mg once a day 2. Adderall 20 mg twice a day 3. Fluticasone 4. Montelukast 10 mg once a day 5. Fexofenadine 180 mg once a day During physical exam: GENERAL: A pleasant patient without any distress. VITAL SIGNS: See below HEENT: PERRLA, EOMI.low position of soft palate, Mallapati 3 . NECK: Supple. No JVD. LUNGS: Clear to percussion and to auscultation. Good air exchange. No wheezing or rhonchi. HEART: S1, S2 regular. ABDOMEN: Soft and nontender.[] EXTREMITIES: No clubbing or cyanosis. FOREST RESOURCES PROFESSOR: Awake, alert, and oriented x3. No focal deficit. Impressions: 1. Obstructive sleep apnea-hypopnea syndrome. Patient demonstrated great compliance with treatment, benefiting from treatment. 2. Narcolepsy type II, controlled with Adderall 40 mg a day. 3. History of ADHD. 4. Status post lap band surgery. 5. History of depression. 6. Blood pressure and heart rate increased in the office today. Plan: 1. Continue using PAP equipment every night for the whole night. 2. To change air filter at least 1-2 times per month. 3. PAP unit should stay lower then position of the head. 4. Advised patient to remove all remaining water from humidifier canister daily and make it dry after each usage. Refill canister with fresh distilled water before each usage. 5. Sleep hygiene with regular time in bed for at least 8 hours. 6. Precautions related to driving. No driving if feel any sleepiness. 7. I will maintain prescription for PAP supplies including mask, tube, filters. 8. Follow up visit in 6 months or earlier if patient has any problems. 9. Watching weight. 10. Monitoring blood pressure. 11. Low-sodium diet. Thank you very much for allowing me to participate in the management of your patient. Fransico Negrete MD, PhD, FAASM. Diplomat of [place] Board of Sleep Medicine, Sleep Medicine Board by [employer] Board of Internal Medicine Warehouse Shipper of [facility] [place] Objective - Vital Signs Vital signs: Vital Signs Temp 97.9 F 07/24/23 13:26 Pulse 97 07/24/23 13:26 Resp 18 07/24/23 13:26 BP 153/92 07/24/23 13:26 Pulse Ox 99 07/24/23 13:26 FiO2 Intake & Output 07/23/23 07/24/23 07/24/23 18:59 06:59 18:59 Weight 87.997 kg
== END ==
LOC: 3 N SLEEP 13:05
PROVIDERS: ATTEND Internal Medicine
DX: G47.33 Obstructive sleep apnea (adult) (pediatric) (principal); G47.419 Narcolepsy without cataplexy; F32.A Depression, unspecified; F90.9 Attention-deficit hyperactivity disorder, unspecified type; R03.0 Elevated blood-pressure reading, without diagnosis of hypertension; F17.200 Nicotine dependence, unspecified, uncomplicated; Z98.890 Other specified postprocedural states; Z99.89 Dependence on other enabling machines and devices; Z88.0 Allergy status to penicillin; Z79.899 Other long term (current) drug therapy
CPT/HCPCS: 99212

== ENCOUNTER → 2024-03-03 | Outpatient (CLI) | payer MEDICAID ==
[2024-03-03 13:11] VITALS: BP 136/83; PULSE 122; RESP 16; TEMP 97.9
--- NOTE | 2024-03-03 13:35 | P.PROGSL ---
Subjective DATE: 03/03/2024 FOLLOW UP VISIT. Patient with narcolepsy and obstructive sleep apnea hypopnea syndrome return to sleep center for follow-up visit. Information from previous visit have been reviewed. Patient is using PAP equipment every night for the whole night, getting PAP supplies in time. The patient does not have significant problems with the mask, PAP unit and humidification. [place] sleepiness scale is 6, which is normal. Patient is on treatment with Adderall 20 mg twice a day to prevent sleepiness. I checked information from PAP unit. PAP unit pressure 7 cm H2O. Usage is 100% for more then 4 hours, average 7.5 hours per night. Leak is 4l/m, which is in acceptable range. Apnea Hypopnea Index is 0.7, which is normal. MEDICATIONS have been reviewed, please see below. During physical exam: GENERAL: A pleasant patient without any distress. VITAL SIGNS: Please see below, weight is 198 lbs. HEENT: PERRLA, EOMI.low position of soft palate, Mallapati 3 . NECK: Supple. No JVD. LUNGS: Clear to percussion and to auscultation. Good air exchange. No wheezing or rhonchi. HEART: S1, S2 regular. ABDOMEN: Soft and nontender. Obese EXTREMITIES: No clubbing or cyanosis. COMMUNICATIONS PLANNER: Awake, alert, and oriented x3. No focal deficit. Impressions: 1. Obstructive sleep apnea-hypopnea syndrome. Patient demonstrated great compliance with treatment, benefiting from treatment. 2. Narcolepsy type II, sleepiness uncontrolled with Adderall. 3. History of ADHD. 4. Tachycardia, which started before patient was on treatment with Adderall. 5. History of depression. 6. Status post lap band surgery. Plan: 1. Continue using PAP equipment every night for the whole night. 2. Sleep hygiene with regular time in bed for at least 7.5-8 hours 3. PAP unit should stay lower then position of the head. 4. Advised patient to remove all remaining water from humidifier canister daily and make it dry after each usage. Refill canister with fresh distilled water before each usage. 5. Watching and losing weight. 6. Precautions related to driving. No driving if feel any sleepiness. 7. I will maintain prescription for PAP supplies including mask, tube, filters. 8. Follow up visit in 6 months or earlier if patient has any problems. 9. Please consider pharmacotherapy for sinus tachycardia. Thank you very much for allowing me to participate in the management of your patient. Fransico Negrete MD, PhD, FAASM. Diplomat of [place] Board of Sleep Medicine, Sleep Medicine Board by [place] Board of Internal Medicine Deliver Driver of [facility] [place] Objective - Vital Signs Vital Signs: Vital Signs Temp 97.9 F 03/03/24 13:10 Pulse 122 H 03/03/24 13:10 Resp 16 03/03/24 13:10 BP 136/83 03/03/24 13:10 Pulse Ox 98 03/03/24 13:10 FiO2 Intake & Output 03/02/24 03/03/24 03/03/24 18:59 06:59 18:59 Weight 89.811 kg Home Medications: Home Medications Medication Instructions Recorded Confirmed Type Citalopram Hydrobromide [CeleXA] 20 mg PO QAM 05/21/14 03/03/24 History Dextroamphetamine/Amphetamine 40 mg PO QAM 05/21/14 09/08/18 History [Adderall] Ibuprofen [Motrin] 800 mg PO BID PRN 09/03/18 03/03/24 History Dextroamphetamine/Amphetamine 20 mg PO BID 30 Days #60 tab 05/23/22 03/03/24 Rx [Adderall] Fexofenadine HCl 180 mg PO DAILY 03/03/24 03/03/24 History Fluticasone Nasal [place] [Flonase See Rx Instructions .ROUTE .COMPLEX 03/03/24 03/03/24 History Nasal [place]] Montelukast [Singulair] 10 mg PO HS 03/03/24 03/03/24 History
== END ==
LOC: 3 N SLEEP 13:04
PROVIDERS: ATTEND Internal Medicine
CPT/HCPCS: 99212

== ENCOUNTER → 2024-09-15 | Outpatient (CLI) | payer MEDICAID ==
[2024-09-15 13:24] VITALS: BP 147/97; PULSE 119; RESP 18; TEMP 98
--- NOTE | 2024-09-15 13:41 | P.PROGSL ---
Subjective DATE: 09/15/2024 FOLLOW UP VISIT. Patient with narcolepsy and obstructive sleep apnea hypopnea syndrome return to sleep center for follow-up visit. Information from previous visit have been reviewed. Patient is on treatment with Adderall 20 mg twice a day. No jittering. Alertness is on controll with medication Patient is using PAP equipment every night for the whole night, getting PAP supplies in time. The patient does not have significant problems with the mask, PAP unit and humidification. [place] sleepiness scale is 3, which is perfect. I checked information from PAP unit. PAP unit pressure 7 cm H2O. Usage is 100% for more then 4 hours, average 7.3 hours per night. Leak is 5 l/m, which is in acceptable range. Apnea Hypopnea Index is 0.6, which is normal. MEDICATIONS have been reviewed, please see below. During physical exam: GENERAL: A pleasant patient without any distress. VITAL SIGNS: Please see below, weight is 203.6 lbs. HEENT: PERRLA, EOMI.low position of soft palate, Mallapati 3. NECK: Supple. No JVD. LUNGS: Clear to percussion and to auscultation. Good air exchange. No wheezing or rhonchi. HEART: S1, S2 regular. ABDOMEN: Soft and nontender. Obese EXTREMITIES: No clubbing or cyanosis. SUPERVISOR CHAR HOUSE: Awake, alert, and oriented x3. No focal deficit. Impressions: 1. Obstructive sleep apnea-hypopnea syndrome. Patient demonstrated great compliance with treatment, benefiting from treatment. 2. Narcolepsy type II, sleepiness is on control with Adderall. 3. History of ADHD. 4. Tachycardia, according to patient started before treatment with Adderall. 5. History of depression. 6. Status post lap band surgery. Plan: 1. Continue using PAP equipment every night for the whole night. 2. Sleep hygiene with regular time in bed for at least 7.5-8 hours 3. PAP unit should stay lower then position of the head. 4. Advised patient to remove all remaining water from humidifier canister daily and make it dry after each usage. Refill canister with fresh distilled water before each usage. 5. Watching and losing weight. 6. Precautions related to driving. No driving if feel any sleepiness. 7. I will maintain prescription for PAP supplies including mask, tube, filters. 8. Follow up visit in 6 months or earlier if patient has any problems. Thank you very much for allowing me to participate in the management of your patient. Fransico Negrete MD, PhD, FAASM. Diplomat of [place] Board of Sleep Medicine, Sleep Medicine Board by [place] Board of Internal Medicine Steel Rule Die Maker Apprentice of [facility] [place] Objective - Vital Signs Vital Signs: Vital Signs Temp 98.0 F 09/15/24 13:18 Pulse 119 H 09/15/24 13:18 Resp 18 09/15/24 13:18 BP 147/97 09/15/24 13:18 Pulse Ox 98 09/15/24 13:18 FiO2 Intake & Output 09/14/24 09/15/24 09/15/24 18:59 06:59 18:59 Weight 92.249 kg Home Medications: Home Medications Medication Instructions Recorded Confirmed Type Citalopram Hydrobromide [CeleXA] 20 mg PO QAM 05/21/14 09/15/24 History Dextroamphetamine/Amphetamine 20 mg PO QAM 05/21/14 09/15/24 History [Adderall] Ibuprofen [Motrin] 800 mg PO TID 09/03/18 09/15/24 History Dextroamphetamine/Amphetamine 20 mg PO BID 30 Days #60 tab 05/23/22 09/15/24 Rx [Adderall] Fexofenadine HCl 180 mg PO DAILY 03/03/24 09/15/24 History Fluticasone Nasal [place] [Flonase See Rx Instructions .ROUTE .COMPLEX 03/03/24 09/15/24 History Nasal [place]] Montelukast [Singulair] 10 mg PO HS 03/03/24 09/15/24 History
== END ==
LOC: 3 N SLEEP 13:03
PROVIDERS: ATTEND Internal Medicine
DX: G47.33 Obstructive sleep apnea (adult) (pediatric) (principal); G47.419 Narcolepsy without cataplexy; R00.0 Tachycardia, unspecified; F17.200 Nicotine dependence, unspecified, uncomplicated; Z86.59 Personal history of other mental and behavioral disorders; Z98.890 Other specified postprocedural states; Z99.89 Dependence on other enabling machines and devices; Z88.0 Allergy status to penicillin
CPT/HCPCS: 99212

== ENCOUNTER → 2024-11-11 | Outpatient (CLI) | payer MEDICAID ==
--- NOTE | 2024-11-11 07:37 | MM ---
Reason for Exam: Screening (asymptomatic). Last mammogram was performed 2 year(s) and 6 month(s) ago. Patient History: Menarche at age 12. First Full-Term at age 20. Premenopausal. Risk Values: Lizzeth 5 year model risk: 0.6%. NCI Lifetime model risk: 8.8%. Prior Study Comparison: 05/15/2022 Bilateral MG 3D screening mammo w/cad, [facility]. Tissue Density: There are scattered areas of fibroglandular density. Findings: Analyzed By CAD. Right breast: There is no suspicious group of microcalcifications or new suspicious mass. Left breast: There is no suspicious group of microcalcifications or new suspicious mass. Overall Assessment: Negative, BI-RAD 1 Management: Screening Mammogram of both breasts in [address] [facility] will attempt to contact patient to return for supplemental views and ultrasound if indicated. Patient should continue monthly self-breast exams. A clinical breast exam by your physician is recommended on an annual basis. This exam should not preclude additional follow-up of suspicious palpable abnormalities. Note on Lizzeth scores and lifetime risk: 1. A Lizzeth score greater than 3% is considered moderate risk. If this is the case, consider specialist referral to assess eligibility for a risk reducing agent. 2. If overall lifetime risk for the development of breast cancer is 20% or higher, the patient may qualify for future screening with alternating mammogram and breast MRI. [facility], , 11/11/2024 7:34 AM. Electronically signed and approved by: Norberto Atkinson DO
== END | disposition home or self-care (01) ==
LOC: RADMAMWWP 06:54
DX: Z12.31 Encounter for screening mammogram for malignant neoplasm of breast (principal); R92.323 Mammographic fibroglandular density, bilateral breasts
CPT/HCPCS: 77063; 77067